=== PATIENT | male | born 1970 | race Asian ===

== ENCOUNTER 2018-02-01 15:09 | Emergency (ER) | payer OTHER, BC ==
[2018-02-01] MEDS: IBUPROFEN 600 MG TAB PO (16:53)
[2018-02-01] MEDS: DIPHTH/TET/ACEL PERTUSS (ADULT) 0.5 ML VIAL IM* (16:54)
[2018-02-01] MEDS ORDERED: LIDOCAINE 1% (MDV) 20 ML INJ SC (17:00)
[2018-02-01] MEDS: LIDOCAINE 1% (MPF) 30 ML INJ SC (17:02)
== END 2018-02-01 18:09 | disposition home or self-care (01) ==
LOC: FTE 15:09
DX: S61.411A Laceration without foreign body of right hand, initial encounter (principal); R40.2412 Glasgow coma scale score 13-15, at arrival to emergency department; I10 Essential (primary) hypertension; F17.210 Nicotine dependence, cigarettes, uncomplicated; W26.0XXA Contact with knife, initial encounter; Y92.89 Other specified places as the place of occurrence of the external cause; Z23 Encounter for immunization
CPT/HCPCS: 12001; 73110-RT; 90471; 90715; 99283-25

== ENCOUNTER 2018-02-04 07:14 | Emergency (ER) | payer OTHER | END 2018-02-04 07:49 | disposition home or self-care (01) | LOC: FTE 07:14 | DX: Z48.01 Encounter for change or removal of surgical wound dressing (principal); I10 Essential (primary) hypertension; F17.210 Nicotine dependence, cigarettes, uncomplicated | CPT/HCPCS: 99281; Z7502 ==